=== PATIENT | male | born 1990 | race Caucasian/White ===

== ENCOUNTER 2025-04-20 18:04 | Emergency (ER) | payer OTHER, SELFPAY ==
[2025-04-20 18:20] VITALS: BP 123/75; PULSE 90; RESP 18; TEMP 36.6; O2SAT 99; BMI 38.0
--- NOTE | 2025-04-20 19:10 | XR_ITS ---
Examination: Lumbar spine 3 views TECHNIQUE: AP lateral, lateral lower lumbar spine 3 views April 20, 2025 1938 hours INDICATIONS: Low back pain beginning 3 days ago. FINDINGS: Adequate alignment lumbar vertebral bodies No lumbar fracture Moderate to advanced disc narrowing L5-S1 No spondylolisthesis IMPRESSION: Moderate to advanced degenerative disc disease L5-S1
--- NOTE | 2025-04-20 19:11 | PD.EDBACK ---
ED Back Injury Pain RME/HPI General Chief Complaint: Back Pain/Injury Stated Complaint: lower back pain x1 day Time Seen by Provider: 04/20/25 18:41 Arrival date/time: 04/20/25 18:04 RME / HPI RME / HPI Narrative: 34-year-old male patient came in for evaluation regarding low back pain. Onset of symptoms for the last 2 days as right-sided low back pain, described as dull ache, severity moderate. Patient pain radiates to the right posterior thigh. Denies any dysuria frequency diarrhea constipation or other complaints. Denies any fever denies any fall. Patient also denies any urinary incontinence, no bowel incontinence, denies any saddle anesthesia. No other complaints noted. Related Data Home Medications ?Medication ?Instructions ?Recorded ?Confirmed fluticasone propionate 50 1 spray intranasal QDAY 09/23/20 01/30/21 mcg/actuation nasal spray,suspension hydrocodone 10 mg-acetaminophen 1 tab PO TID PRN Pain 09/23/20 01/30/21 325 mg tablet ([place]) hydroxyzine pamoate 25 mg capsule 25 mg PO QDAY PRN Anxiety 09/23/20 01/30/21 ibuprofen 800 mg tablet 800 mg PO TID PRN Pain 09/23/20 01/30/21 loratadine 10 mg tablet 10 mg PO QDAY 09/23/20 01/30/21 sertraline 100 mg tablet 100 mg PO QAM 09/23/20 01/30/21 zolpidem 5 mg tablet 5 mg PO HS PRN Insomnia 09/23/20 01/30/21 Previous Rx's ?Medication ?Instructions ?Recorded meclizine 25 mg tablet 25 mg PO BID PRN dizziness #20 tabs 12/12/20 acetaminophen 300 mg-codeine 30 mg 1 tab PO Q6H PRN pain #15 tabs 11/06/22 tablet cyclobenzaprine 10 mg tablet 10 mg PO TID PRN muscle spasm #30 04/20/25 tabs dexamethasone 6 mg tablet 6 mg PO QDAY #7 tabs 04/20/25 ibuprofen 800 mg tablet 800 mg PO Q8H PRN pain #30 tabs 04/20/25 Allergies Allergy/AdvReac Type Severity Reaction Status Date / Time No Known Allergies Allergy Verified 04/20/25 18:07 Review of Systems Review of Systems Narrative Review of Systems: Review of system reviewed and within normal limits except mentioned in HPI ED Exam Narrative Physical exam: VITAL SIGNS: Reviewed. GENERAL APPEARANCE: Alert and interactive, follows commands, no acute distress, HEAD AND FACE: Non-traumatic. ENT: PERRL, pink conjunctivitis, eyelid no trauma, Mucous membrane moist. NECK: Supple, nontender, no nuchal rigidity. CHEST: No tenderness, no crepitus, no paradoxical movement, no retractions. LUNGS: Clear, well ventilated, symmetric, no rales, no wheezing, no ronchi, no stridor, good breath sounds bilaterally. HEART: Regular rate, regular rhythm, no murmur, no gallops. ABDOMEN: Soft, positive bowel sounds, nondistended, no guarding, nontender, no rebound, no masses, RECTAL: Deferred. GENITAL: Deferred. NEUROLOGICAL: Gross motor function intact sensory function intact, Appropriate for age. MUSCULOSKELETAL: low back tenderness, tenderness to the right posterior thigh, full range of motion. EXTREMITIES: Nontender, full range of motion. SKIN: Color pink, dry, no rash, no lacerations, no abrasions, no contusions. LYMPHATICS: Deferred. Course Quality Measures none Orders Category Date Time Status XR lumbar spine 2-3V Stat Exams 04/20/25 19:10 Completed CYCLObenzaPRINE [Flexeril] Med 04/20/25 19:10 Discontinued 10 mg PO X1 ONE Dexamethasone Inj [Decadron Inj] Med 04/20/25 19:10 Discontinued 10 mg IM X1 ONE Ketorolac Inj [Toradol Inj] Med 04/20/25 19:10 Discontinued 30 mg IM X1 ONE Vital Signs Vital signs: Vital Signs Temperature 97.9 F 04/20/25 18:20 Pulse Rate 90 04/20/25 18:20 Respiratory Rate 18 04/20/25 18:20 Blood Pressure 123/75 04/20/25 18:20 Pulse Oximetry (%) 99 04/20/25 18:20 Oxygen Delivery Method Room Air 04/20/25 18:20 Back Pain / Injury MDM Narrative MDM Narrative:: 34-year-old male patient came in for evaluation regarding low back pain. Onset of symptoms for the last 2 days as right-sided low back pain, described as dull ache, severity moderate. Patient pain radiates to the right posterior thigh. Denies any dysuria frequency diarrhea constipation or other complaints. Denies any fever denies any fall. Patient also denies any urinary incontinence, no bowel incontinence, denies any saddle anesthesia. No other complaints noted. X-ray of the lumbar spine showed degenerative disc disease between L5 and S1. Patient was given a copy of his lumbar x-ray Was given Toradol dexamethasone and Flexeril with significant improvement symptoms Patient data External records reviewed:: None Clinical information provided by:: patient Social determinants that could affect healthcare access:: none Patient has the following chronic illnesses:: None How is presenting disease/condition affected by chronic disease/condition?: no chronic disease Evaluation data The following diagnostics were reviewed and interpreted by me:: radiology exam(s) Lab and/or radiology exams considered but not ordered:: None Interpretation Summary: She results in [facility] Medications / Prescriptions Medications or Prescriptions considered but not ordered:: None Medication administrations:: Medication Administration History Discontinued Medications Cyclobenzaprine HCl (Cyclobenzaprine 5 Mg Tablet) 10 mg PO X1 ONE Stop: 04/20/25 19:11 Last Admin: 04/20/25 21:13 Dose: 10 mg Documented By: Dexamethasone Sodium Phosphate (Dexamethasone Sod Phos Inj 10 Mg/Ml Vial) 10 mg IM X1 ONE Stop: 04/20/25 19:11 Last Admin: 04/20/25 21:14 Dose: 10 mg Documented By: Ketorolac Tromethamine (Ketorolac Inj 60 Mg/2 Ml Vial) 30 mg IM X1 ONE Stop: 04/20/25 19:11 Last Admin: 04/20/25 21:14 Dose: 30 mg Documented By: Flexeril Decadron and Toradol with significant improvement of pain Consultations Consultation(s) initiated? (list below): No Diagnosis Differential diagnosis back pain/injury: lumbar radiculopathy, sciatica and other (Acute low back pain lumbar disc disease) Most likely diagnosis given after review of the tests above:: Acute low back pain lumbar disc disease Admission Indicated Admission indicated?: not indicated Admission Request Was there a request for admission?: No Disposition Plan Disposition Plan: Discharge Discharge Attestation Discharge Attestation: The patient was given an opportunity to ask questions and understood the discharge instructions. Discharge instructions specifically effects, indications for sooner follow up or return to the emergency department, and the expected course of current diagnosis. Patient condition: Stable Discharge Plan Plan Patient Disposition: HOME (Self Care) Discharge Disposition comment: Stable Prescriptions/Referrals Prescriptions/Med Rec: New dexamethasone 6 mg tablet 6 mg PO QDAY Qty: 7 0RF cyclobenzaprine 10 mg tablet 10 mg PO TID PRN (Reason: muscle spasm) Qty: 30 0RF ibuprofen 800 mg tablet 800 mg PO Q8H PRN (Reason: pain) Qty: 30 0RF No Action meclizine 25 mg tablet 25 mg PO BID PRN (Reason: dizziness) Qty: 20 0RF ibuprofen 800 mg Tablet 800 mg PO TID PRN (Reason: Pain) sertraline 100 mg Tablet 100 mg PO QAM hydrocodone-acetaminophen [[place]] 10-325 mg Tablet 1 tab PO TID PRN (Reason: Pain) zolpidem 5 mg Tablet 5 mg PO HS PRN (Reason: Insomnia) fluticasone propionate 50 mcg/actuation [place],Suspension 1 spray INTRANASAL QDAY loratadine 10 mg Tablet 10 mg PO QDAY hydroxyzine pamoate 25 mg Capsule 25 mg PO QDAY PRN (Reason: Anxiety) acetaminophen-codeine 300-30 mg tablet 1 tab PO Q6H PRN (Reason: pain) Qty: 15 0RF Referrals: No Primary/Family,Physician [Primary Care Provider] - In 1 week Problem List Clinical Impression: Lumbar disc disease, Acute low back pain Patient/Caregiver Discharge Instructions Discharge Activity: activity as tolerated Education Materials: Back Basics: A Healthy Spine, Back Exercises: Leg Reach Additional Instructions: Thank you for the opportunity for serving you today. You are stable for discharged . You are advised to: Follow-up with your PCP in 1 to 2 days Return to ED for worsening of symptoms Increase oral fluids Take medication as prescribed As your PCP to refer you to a spine surgeon Print Language: French Stand Alone Forms: Petty Award Info., Work/School Release, Patient Portal Info Letter [facility] Supervising Physician [facility] Supervising Physician: MD Tonia
[2025-04-20] MEDS: CYCLObenzaPRINE 5 MG TABLET 10 MG PO (21:13)
[2025-04-20] MEDS: DEXAMETHASONE SOD PHOS INJ 10 MG/ML VIAL IM (21:14)
[2025-04-20] MEDS: KETOROLAC INJ 60 MG/2 ML VIAL 30 MG IM (21:14)
[2025-04-20 22:01] VITALS: BP 135/81; PULSE 69; RESP 18; TEMP 36.4; O2SAT 97
== END 2025-04-20 22:20 | disposition home or self-care (01) ==
PROVIDERS: Emergency Provider Emergency Medicine
DX: M51.379 Other intervertebral disc degeneration, lumbosacral region without mention of lumbar back pain or lower extremity pain (principal)
CPT/HCPCS: 72100; 96372; 99283; J1100; J1885; A9270